=== PATIENT | female | born 1935 | race Caucasian/White ===

== ENCOUNTER 2024-06-23 08:11 | Inpatient (IN) | payer MEDICARE, BC ==
[~2024-06-23] VITALS: Ht 162.6 cm; Wt 69.1 kg
[~2024-06-23 08:11] MED LIST: metoprolol tartrate 1mg/ml inj IV ONE
[2024-06-23] MEDS: acetaminophen 1,000mg/100ml IV 100 ML IV SCH (09:22)
[2024-06-23] MEDS: diltiazem 5mg/ml 5ml inj. IV ONE ×3 (09:22→14:13)
[2024-06-23] MEDS: normal saline 1000ml 1,000 ML IV ONE ×2 (09:22→14:20)
[2024-06-23 09:23] LABS: BASOPHILS # (AUTO) 0.1 X10'3 (0-0.2); BASOPHILS % (AUTO) 0.6 % (0-1); EOSINOPHILS # (AUTO) 0.2 X10'3 (0-0.9); EOSINOPHILS % (AUTO) 1.7 % (0-6); HEMATOCRIT 41.1 % (35.0-45.0); HEMOGLOBIN 13.6 g/dl (12.0-16.0); LYMPHOCYTES # (AUTO) 0.9 X10'3 (1.1-4.8); LYMPHOCYTES % (AUTO) 6.4 % (21-51); MEAN CORPUSCULAR HEMOGLOBIN 30.7 PG (27.0-31.0); MEAN CORPUSCULAR HGB CONC 33.1 g/dL (33.0-36.5); MEAN CORPUSCULAR VOLUME 92.8 FL (78-98); MEAN PLATELET VOLUME 8.1 FL (7.4-10.4); MONOCYTES # (AUTO) 0.6 X10'3 (0-0.9); MONOCYTES % (AUTO) 4.4 % (2-12); NEUTROPHILS % (AUTO) 86.9 % (42-75); PLATELET COUNT 393 X10'3 (140-440); RED BLOOD COUNT 4.43 X10'6 (4.20-5.60); RED CELL DISTRIBUTION WIDTH 14.7 % (11.5-14.5); WHITE BLOOD COUNT 13.8 X10'3 (4.5-11.0)
[2024-06-23 09:30] LABS: ALANINE AMINOTRANSFERASE 26 U/L (12-78); ALBUMIN 3.3 G/DL (3.4-5.0); ALBUMIN/GLOBULIN RATIO 0.9 (1.1-1.5); ALKALINE PHOSPHATASE 90 IU/L (46-116); ANION GAP 8 (8-16); ASPARTATE AMINO TRANSFERASE 25 U/L (10-37); BILIRUBIN,TOTAL 0.6 MG/DL (0.1-1.0); BLOOD UREA NITROGEN 20 MG/DL (7-18); CALCIUM 8.4 MG/DL (8.5-10.1); CHLORIDE 104 MMOL/L (99-107); CREATININE 1.33 MG/DL (0.40-0.90); GLUCOSE 145 MG/DL (70-104); POTASSIUM 3.6 MMOL/L (3.5-5.1); SODIUM 139 MMOL/L (135-145); TOTAL CARBON DIOXIDE 26.7 MMOL/L (24-32); TOTAL PROTEIN 6.9 G/DL (6.4-8.2); eCRCL 25 ML/MIN; eGFR 38 ML/MIN
[2024-06-23] MEDS: metoprolol tartrate 1mg/ml inj IV ONE (09:31)
[2024-06-23] MEDS ORDERED: TRAZ-256 PO (09:50)
[2024-06-23] MEDS ORDERED: BUS15T PO (09:50)
[2024-06-23] MEDS ORDERED: ARIP2TAB37 PO (09:50)
[2024-06-23] MEDS ORDERED: DULO60CA59 PO (09:50)
[2024-06-23] MEDS ORDERED: LEVO125T PO (09:50)
[2024-06-23] MEDS ORDERED: DICY20TA17 PO (09:50)
[2024-06-23] MEDS ORDERED: AMLO5TAB5 PO (09:50)
[2024-06-23] MEDS ORDERED: LOP12.5T PO (09:50)
[2024-06-23] MEDS ORDERED: diltiazem-D5W 125mg/125ml 125 ML IV SCH (10:10)
[2024-06-23] MEDS: diltiazem-NS 100mg/100ml 100 ML IV SCH ×2 (11:16→15:40)
[2024-06-23] MEDS ORDERED: potassium Cl 20 mEq SR tablet PO PRN (12:05)
[2024-06-23] MEDS ORDERED: magnesium sulf-water 2g/50mL 50 ML IV PRN (12:05)
[2024-06-23] MEDS ORDERED: potassium Cl 40MEQ/1/2NS 520ml 520 ML IV PRN (12:05)
[2024-06-23] MEDS ORDERED: mag hydrox/Alum hydrox/simeth 30ml oral suspension PO PRN (12:05)
[2024-06-23] MEDS ORDERED: magnesium hydroxide 30ml (MOM) UD suspension PO PRN (12:05)
[2024-06-23] MEDS ORDERED: magnesium sulf-water 4G/100mL 100 ML IV PRN (12:05)
[2024-06-23 12:46] LABS: MAGNESIUM 1.8 MG/DL (1.5-2.4); THYROID STIMULATING HORMONE 0.66 ulU/ml (0.34-4.50)
[2024-06-23] MEDS: CefTRIAXone 2gm/D5W 50ml BAG 50 ML IV SCH (14:21)
[2024-06-23 14:41] LABS: D-DIMER 1.82 MG/L FEU (0-0.50)
[2024-06-23] MEDS ORDERED: amiodarone/D5 360MG/200ML BAG 200 ML IV SCH (14:55)
[2024-06-23 16:00] VITALS: RESP 16; O2SAT 94
[2024-06-23] MEDS: metoprolol tartrate 1mg/ml inj IV SCH (16:01)
[2024-06-23] MEDS: azithromycin/NS 500mg/250ml 250 ML IV SCH (16:14)
[2024-06-23] MEDS: normal saline 1000ml 1,000 ML IV SCH (16:20)
[2024-06-23 16:40] VITALS: BP 124/70; PULSE 149; RESP 16; TEMP 97.2; O2SAT 93
[2024-06-23 18:00] VITALS: BP 115/46; PULSE 160; RESP 18; TEMP 97.3; O2SAT 94
[2024-06-23] MEDS: amiodarone 200mg tablet PO SCH (18:36)
[2024-06-23] MEDS: docusate sod 100mg capsule PO SCH (18:59)
[2024-06-23] MEDS: K and/or MAG REPLACEMENT MC SCH (19:43)
[2024-06-23 20:00] VITALS: BP 122/56; PULSE 75; RESP 20; O2SAT 96
[2024-06-23] MEDS ORDERED: amiodarone 200mg tablet PO SCH (20:00)
[2024-06-23] MEDS: digoxin 250mcg/ml 2ml ampule IV STA (20:45)
[2024-06-23 22:00] VITALS: BP 128/58; PULSE 72; RESP 25; TEMP 97.6; O2SAT 94
[2024-06-24] VITALS (9 sets, daily range): BP systolic 101–153; BP diastolic 56–80; PULSE 81–107; RESP 16–23; TEMP 97.6–98.6; O2SAT 88–98
[2024-06-24 06:44] LABS: MAGNESIUM 1.7 MG/DL (1.5-2.4)
[2024-06-24 07:58] LABS: BASOPHILS # (AUTO) 0.1 X10'3 (0-0.2); BASOPHILS % (AUTO) 0.4 % (0-1); EOSINOPHILS # (AUTO) 0.1 X10'3 (0-0.9); EOSINOPHILS % (AUTO) 0.3 % (0-6); HEMATOCRIT 35.1 % (35.0-45.0); HEMOGLOBIN 11.6 g/dl (12.0-16.0); LYMPHOCYTES # (AUTO) 1.2 X10'3 (1.1-4.8); LYMPHOCYTES % (AUTO) 6.7 % (21-51); MEAN CORPUSCULAR HEMOGLOBIN 30.6 PG (27.0-31.0); MEAN CORPUSCULAR HGB CONC 33.2 g/dL (33.0-36.5); MEAN CORPUSCULAR VOLUME 92.2 FL (78-98); MEAN PLATELET VOLUME 8.5 FL (7.4-10.4); MONOCYTES # (AUTO) 1.1 X10'3 (0-0.9); MONOCYTES % (AUTO) 6.1 % (2-12); NEUTROPHILS # (AUTO) 15.1 X10'3 (1.8-7.7); NEUTROPHILS % (AUTO) 86.5 % (42-75); PLATELET COUNT 360 X10'3 (140-440); RED BLOOD COUNT 3.81 X10'6 (4.20-5.60); RED CELL DISTRIBUTION WIDTH 14.8 % (11.5-14.5); WHITE BLOOD COUNT 17.5 X10'3 (4.5-11.0)
[2024-06-24 08:03] LABS: ALANINE AMINOTRANSFERASE 31 U/L (12-78); ALBUMIN 2.6 G/DL (3.4-5.0); ALBUMIN/GLOBULIN RATIO 0.8 (1.1-1.5); ALKALINE PHOSPHATASE 76 IU/L (46-116); ANION GAP 12 (8-16); ASPARTATE AMINO TRANSFERASE 27 U/L (10-37); BILIRUBIN,TOTAL 1.1 MG/DL (0.1-1.0); BLOOD UREA NITROGEN 15 MG/DL (7-18); BUN/CREATININE RATIO 12.9 (10.0-20.0); CALCIUM 7.7 MG/DL (8.5-10.1); CHLORIDE 106 MMOL/L (99-107); CREATININE 1.16 MG/DL (0.40-0.90); GLUCOSE 103 MG/DL (70-104); POTASSIUM 3.4 MMOL/L (3.5-5.1); SODIUM 141 MMOL/L (135-145); TOTAL CARBON DIOXIDE 22.9 MMOL/L (24-32); TOTAL PROTEIN 5.9 G/DL (6.4-8.2); eCRCL 28 ML/MIN; eGFR 44 ML/MIN
[2024-06-24] MEDS: potassium Cl 20 mEq SR tablet PO PRN (11:51)
[2024-06-24] MEDS: ondansetron 4mg rapidly disintigrating tab PO PRN (11:52)
[2024-06-24 15:45] LABS: MAGNESIUM 1.7 MG/DL (1.5-2.4); POTASSIUM 3.5 MMOL/L (3.5-5.1)
[2024-06-24] MEDS: metoprolol tartrate 1mg/ml inj IV SCH ×2 (15:47→20:28)
[2024-06-24 17:33] LABS: ABG BASE EXCESS -5.6 mmol/L (-2.0-3.0); ABG HCO3 20.3 mmol/L (21.0-28.0); ABG OXYGEN SATURATION 92.2 % (94.0-98.0); ABG PCO2 (T) 40.8 mmHg (32.0-45.0); ABG PH (T) 7.314 (7.350-7.450); ABG PO2 (T) 64.6 mmHg (83.0-108.0); ALLEN'S TEST POSITIVE; FCOHb 0.3 % (0.5-1.5); FHHb 7.8 % (0.0-5.0); FO2Hb 91.9 % (94.0-98.0); MODE MASK - NRB; PATIENT TEMPERATURE 36.8; TOTAL HEMOGLOBIN 14.7 G/dl (12.0-16.0)
[2024-06-24] MEDS ORDERED: ondansetron/PF 4mg/2ml inj IV PRN (17:40)
[2024-06-24] MEDS: furosemide 40mg/4ml inj IV ONE (18:00)
[2024-06-24] MEDS: morphine 2 MG/ML inj. syringe IV PRN (18:10)
[2024-06-24] MEDS: ondansetron/PF 4mg/2ml inj IV PRN (18:11)
[2024-06-24] MEDS ORDERED: metoprolol tartrate 1mg/ml inj IV SCH (20:00)
[2024-06-24] MEDS: diltiazem-NS 100mg/100ml 100 ML IV SCH (20:29)
[2024-06-25] VITALS (15 sets, daily range): BP systolic 109–182; BP diastolic 58–119; PULSE 70–155; RESP 16–28; TEMP 97.8–98.8; O2SAT 95–97
[2024-06-25] MEDS: furosemide 40mg/4ml inj IV SCH (00:17)
[2024-06-25 03:19] LABS: BILIRUBIN,URINE NEGATIVE (Neg); CLARITY,URINE CLEAR (Clear); COLOR,URINE STRAW (Yellow); GLUCOSE, URINE NEGATIVE (Neg); KETONES,URINE NEGATIVE (Neg); LEUKOCYTE ESTERASE ,URINE NEGATIVE (Neg); NITRITES, URINE NEGATIVE (Neg); OCCULT BLOOD,URINE NEGATIVE (Neg); PROTEIN,URINE NEGATIVE (Neg); UROBILINOGEN,URINE 0.2 E.U/dL (0.2-1.0)
[2024-06-25 03:29] LABS: UA COLLECTION TYPE STRAIGHT CATH
[2024-06-25] MEDS: metoprolol tartrate 1mg/ml inj IV ONE (05:41)
[2024-06-25] MEDS: digoxin 250mcg/ml 2ml ampule IV STA (07:13)
[2024-06-25 07:18] LABS: BASOPHILS % (AUTO) 0.3 % (0-1); EOSINOPHILS # (AUTO) 0.1 X10'3 (0-0.9); EOSINOPHILS % (AUTO) 0.7 % (0-6); HEMATOCRIT 36.4 % (35.0-45.0); HEMOGLOBIN 12.1 g/dl (12.0-16.0); LYMPHOCYTES # (AUTO) 0.5 X10'3 (1.1-4.8); LYMPHOCYTES % (AUTO) 3.3 % (21-51); MEAN CORPUSCULAR HEMOGLOBIN 30.5 PG (27.0-31.0); MEAN CORPUSCULAR HGB CONC 33.2 g/dL (33.0-36.5); MEAN CORPUSCULAR VOLUME 91.9 FL (78-98); MEAN PLATELET VOLUME 8.4 FL (7.4-10.4); MONOCYTES # (AUTO) 0.7 X10'3 (0-0.9); MONOCYTES % (AUTO) 4.9 % (2-12); NEUTROPHILS # (AUTO) 13.5 X10'3 (1.8-7.7); NEUTROPHILS % (AUTO) 90.8 % (42-75); PLATELET COUNT 383 X10'3 (140-440); RED BLOOD COUNT 3.96 X10'6 (4.20-5.60); RED CELL DISTRIBUTION WIDTH 14.8 % (11.5-14.5); WHITE BLOOD COUNT 14.9 X10'3 (4.5-11.0)
[2024-06-25 07:52] LABS: ALANINE AMINOTRANSFERASE 25 U/L (12-78); ALBUMIN 2.5 G/DL (3.4-5.0); ALBUMIN/GLOBULIN RATIO 0.7 (1.1-1.5); ALKALINE PHOSPHATASE 76 IU/L (46-116); ANION GAP 9 (8-16); ASPARTATE AMINO TRANSFERASE 22 U/L (10-37); BILIRUBIN,TOTAL 0.7 MG/DL (0.1-1.0); BLOOD UREA NITROGEN 14 MG/DL (7-18); BUN/CREATININE RATIO 11.9 (10.0-20.0); CALCIUM 7.9 MG/DL (8.5-10.1); CHLORIDE 102 MMOL/L (99-107); CREATININE 1.18 MG/DL (0.40-0.90); GLUCOSE 93 MG/DL (70-104); MAGNESIUM 1.7 MG/DL (1.5-2.4); SODIUM 139 MMOL/L (135-145); TOTAL CARBON DIOXIDE 28.4 MMOL/L (24-32); eCRCL 28 ML/MIN; eGFR 43 ML/MIN
[2024-06-25] MEDS: VANCOMYCIN/WATER FOR INJ (PEG) 750MG/150 ML IVPB IV SCH (08:00)
[2024-06-25 08:15] LABS: POTASSIUM 2.8 MMOL/L (3.5-5.1)
[2024-06-25] MEDS: digoxin 250mcg/ml 2ml ampule IV ONE (08:54)
[2024-06-25] MEDS: spironolactone 25 MG tablet PO SCH (09:03)
[2024-06-25] MEDS: diltiazem-NS 100mg/100ml 100 ML IV SCH (10:40)
[2024-06-25] MEDS: methylPREDNISolone sod succ 125mg/2ml vial IV ONE (10:55)
[2024-06-25] MEDS: LidoCAINE 2% Topical Jelly 11mL syringe (UROJET) TOP ONE (12:00)
[2024-06-25] MEDS: LidoCAINE 2% Topical Jelly 11mL syringe (UROJET) ONE (12:02)
[2024-06-25] MEDS ORDERED: potassium Cl 40MEQ/270ML bag 270 ML IV STA (17:47)
[2024-06-25] MEDS: potassium Cl 20 mEq SR tablet PO STA (17:51)
[2024-06-25] MEDS: Potassium Cl 40 MEQ in sodium chloride 0.45% 500 ML IV STA (19:28)
[2024-06-26] VITALS (13 sets, daily range): BP systolic 101–189; BP diastolic 48–134; PULSE 64–154; RESP 14–23; TEMP 96.8–98.9; O2SAT 96–98
[2024-06-26 04:04] LABS: MAGNESIUM 1.8 MG/DL (1.5-2.4); POTASSIUM 3.9 MMOL/L (3.5-5.1)
[2024-06-26 07:20] LABS: BASOPHILS % (AUTO) 0.1 % (0-1); EOSINOPHILS % (AUTO) 0 % (0-6); HEMATOCRIT 36.3 % (35.0-45.0); HEMOGLOBIN 11.9 g/dl (12.0-16.0); LYMPHOCYTES # (AUTO) 0.7 X10'3 (1.1-4.8); LYMPHOCYTES % (AUTO) 5.6 % (21-51); MEAN CORPUSCULAR HEMOGLOBIN 29.8 PG (27.0-31.0); MEAN CORPUSCULAR HGB CONC 32.9 g/dL (33.0-36.5); MEAN CORPUSCULAR VOLUME 90.7 FL (78-98); MEAN PLATELET VOLUME 8.5 FL (7.4-10.4); MONOCYTES # (AUTO) 0.6 X10'3 (0-0.9); MONOCYTES % (AUTO) 5.2 % (2-12); NEUTROPHILS # (AUTO) 11.1 X10'3 (1.8-7.7); NEUTROPHILS % (AUTO) 89.1 % (42-75); PLATELET COUNT 386 X10'3 (140-440); RED CELL DISTRIBUTION WIDTH 14.5 % (11.5-14.5); WHITE BLOOD COUNT 12.4 X10'3 (4.5-11.0)
[2024-06-26 07:41] LABS: ALANINE AMINOTRANSFERASE 24 U/L (12-78); ALBUMIN 2.6 G/DL (3.4-5.0); ALBUMIN/GLOBULIN RATIO 0.7 (1.1-1.5); ALKALINE PHOSPHATASE 79 IU/L (46-116); ANION GAP 9 (8-16); ASPARTATE AMINO TRANSFERASE 18 U/L (10-37); BILIRUBIN,TOTAL 0.6 MG/DL (0.1-1.0); BLOOD UREA NITROGEN 20 MG/DL (7-18); BUN/CREATININE RATIO 14.8 (10.0-20.0); CHLORIDE 100 MMOL/L (99-107); CREATININE 1.35 MG/DL (0.40-0.90); GLUCOSE 128 MG/DL (70-104); MAGNESIUM 1.7 MG/DL (1.5-2.4); POTASSIUM 3.8 MMOL/L (3.5-5.1); SODIUM 138 MMOL/L (135-145); TOTAL PROTEIN 6.4 G/DL (6.4-8.2); eCRCL 24 ML/MIN; eGFR 37 ML/MIN
[2024-06-26] MEDS: amLODIPine 5mg tablet PO SCH (08:33)
[2024-06-26] MEDS: spironolactone 50 MG tablet PO SCH (08:33)
[2024-06-26 13:07] LABS: ALANINE AMINOTRANSFERASE 22 U/L (12-78); ALBUMIN 2.6 G/DL (3.4-5.0); ALBUMIN/GLOBULIN RATIO 0.7 (1.1-1.5); ALKALINE PHOSPHATASE 76 IU/L (46-116); ASPARTATE AMINO TRANSFERASE 18 U/L (10-37); BILIRUBIN,DIRECT 0.2 MG/DL (0-0.3); BILIRUBIN,TOTAL 0.6 MG/DL (0.1-1.0); FREE T4 (FREE THYROXINE) 1.45 NG/DL (0.73-1.40); THYROID STIMULATING HORMONE 0.89 ulU/ml (0.34-4.50); TOTAL PROTEIN 6.4 G/DL (6.4-8.2)
[2024-06-26] MEDS: metoprolol tartrate 50mg tablet PO SCH (19:42)
[2024-06-26] MEDS: digoxin 250mcg/ml 2ml ampule IV ONE (23:00)
[2024-06-26] MEDS: metoprolol tartrate 1mg/ml inj IV ONE (23:00)
[2024-06-27] VITALS (14 sets, daily range): BP systolic 108–159; BP diastolic 72–116; PULSE 83–147; RESP 8–24; TEMP 97–97.5; O2SAT 95–98
[2024-06-27] MEDS: acetaminophen 325mg tablet PO PRN (02:10)
[2024-06-27 07:43] LABS: BASOPHILS % (AUTO) 0.2 % (0-1); EOSINOPHILS # (AUTO) 0.1 X10'3 (0-0.9); EOSINOPHILS % (AUTO) 0.7 % (0-6); HEMATOCRIT 41.6 % (35.0-45.0); LYMPHOCYTES # (AUTO) 1.2 X10'3 (1.1-4.8); LYMPHOCYTES % (AUTO) 6.2 % (21-51); MEAN CORPUSCULAR HEMOGLOBIN 30.6 PG (27.0-31.0); MEAN CORPUSCULAR HGB CONC 33.6 g/dL (33.0-36.5); MEAN PLATELET VOLUME 8.6 FL (7.4-10.4); MONOCYTES # (AUTO) 1.7 X10'3 (0-0.9); MONOCYTES % (AUTO) 8.5 % (2-12); NEUTROPHILS # (AUTO) 16.8 X10'3 (1.8-7.7); NEUTROPHILS % (AUTO) 84.4 % (42-75); PLATELET COUNT 478 X10'3 (140-440); RED BLOOD COUNT 4.58 X10'6 (4.20-5.60); RED CELL DISTRIBUTION WIDTH 14.5 % (11.5-14.5); WHITE BLOOD COUNT 19.9 X10'3 (4.5-11.0)
[2024-06-27] MEDS: amiodarone 200mg tablet PO SCH (08:00)
[2024-06-27 08:19] LABS: ALANINE AMINOTRANSFERASE 22 U/L (12-78); ALBUMIN 2.8 G/DL (3.4-5.0); ALBUMIN/GLOBULIN RATIO 0.7 (1.1-1.5); ALKALINE PHOSPHATASE 90 IU/L (46-116); ANION GAP 8 (8-16); ASPARTATE AMINO TRANSFERASE 23 U/L (10-37); BILIRUBIN,TOTAL 0.5 MG/DL (0.1-1.0); BLOOD UREA NITROGEN 28 MG/DL (7-18); BUN/CREATININE RATIO 19.6 (10.0-20.0); CALCIUM 8.5 MG/DL (8.5-10.1); CHLORIDE 97 MMOL/L (99-107); CREATININE 1.43 MG/DL (0.40-0.90); GLUCOSE 99 MG/DL (70-104); POTASSIUM 3.4 MMOL/L (3.5-5.1); SODIUM 137 MMOL/L (135-145); TOTAL CARBON DIOXIDE 31.9 MMOL/L (24-32); TOTAL PROTEIN 6.8 G/DL (6.4-8.2); eCRCL 23 ML/MIN; eGFR 35 ML/MIN
[2024-06-27] MEDS ORDERED: magnesium Cl slow-release 64mg tablet PO PRN (11:35)
[2024-06-27] MEDS ORDERED: potassium Cl 20 mEq SR tablet PO PRN (11:35)
[2024-06-27] MEDS: potassium Cl 20 mEq SR tablet PO PRN (13:32)
[2024-06-27] MEDS: metoprolol tartrate 1mg/ml inj IV ONE (17:22)
[2024-06-27] MEDS: digoxin 250mcg/ml 2ml ampule IV ONE (17:24)
[2024-06-28] VITALS (13 sets, daily range): BP systolic 121–155; BP diastolic 77–97; PULSE 86–162; RESP 13–22; TEMP 97–97.8; O2SAT 93–96
[2024-06-28] MEDS: metoprolol tartrate 25mg tablet PO ONE (02:52)
[2024-06-28] MEDS: diltiazem-NS 100mg/100ml 100 ML IV SCH (02:52)
[2024-06-28] MEDS: VANCOMYCIN LEVEL IV ONE (07:30)
[2024-06-28 09:53] LABS: BASOPHILS # (AUTO) 0.1 X10'3 (0-0.2); BASOPHILS % (AUTO) 0.4 % (0-1); EOSINOPHILS # (AUTO) 0.3 X10'3 (0-0.9); EOSINOPHILS % (AUTO) 1.6 % (0-6); HEMATOCRIT 45.5 % (35.0-45.0); HEMOGLOBIN 15.2 g/dl (12.0-16.0); LYMPHOCYTES # (AUTO) 1.5 X10'3 (1.1-4.8); LYMPHOCYTES % (AUTO) 9.1 % (21-51); MEAN CORPUSCULAR HEMOGLOBIN 30.3 PG (27.0-31.0); MEAN CORPUSCULAR HGB CONC 33.4 g/dL (33.0-36.5); MEAN CORPUSCULAR VOLUME 90.9 FL (78-98); MEAN PLATELET VOLUME 8.3 FL (7.4-10.4); MONOCYTES # (AUTO) 1.3 X10'3 (0-0.9); MONOCYTES % (AUTO) 7.9 % (2-12); NEUTROPHILS # (AUTO) 13.5 X10'3 (1.8-7.7); PLATELET COUNT 581 X10'3 (140-440); RED CELL DISTRIBUTION WIDTH 14.6 % (11.5-14.5); WHITE BLOOD COUNT 16.7 X10'3 (4.5-11.0)
[2024-06-28 10:08] LABS: ALANINE AMINOTRANSFERASE 23 U/L (12-78); ALBUMIN 2.8 G/DL (3.4-5.0); ALBUMIN/GLOBULIN RATIO 0.7 (1.1-1.5); ALKALINE PHOSPHATASE 93 IU/L (46-116); ANION GAP 11 (8-16); BILIRUBIN,TOTAL 0.5 MG/DL (0.1-1.0); BLOOD UREA NITROGEN 30 MG/DL (7-18); BUN/CREATININE RATIO 21.4 (10.0-20.0); CHLORIDE 98 MMOL/L (99-107); GLUCOSE 193 MG/DL (70-104); POTASSIUM 3.9 MMOL/L (3.5-5.1); SODIUM 137 MMOL/L (135-145); TOTAL CARBON DIOXIDE 27.8 MMOL/L (24-32); TOTAL PROTEIN 7.1 G/DL (6.4-8.2); eCRCL 24 ML/MIN; eGFR 35 ML/MIN
[2024-06-28 10:13] LABS: ASPARTATE AMINO TRANSFERASE 14 U/L (10-37); VANCOMYCIN,TROUGH 13.6 ug/mL (10.0-20.0)
[2024-06-28] MEDS: digoxin 250mcg/ml 2ml ampule IV ONE (11:04)
[2024-06-28] MEDS: metoprolol tartrate 1mg/ml inj IV ONE (15:11)
[2024-06-28] MEDS: lactose-reduced food (Ensure High Protein) 237ml bottle PO SCH (18:16)
[2024-06-28] MEDS: digoxin 250mcg/ml 2ml ampule IV SCH (20:00)
[2024-06-28] MEDS: apixaban 2.5mg tablet PO SCH (21:39)
[2024-06-28] MEDS: metoprolol tartrate 50mg tablet PO SCH (21:40)
[2024-06-29] VITALS (9 sets, daily range): BP systolic 120–166; BP diastolic 64–86; PULSE 63–98; RESP 15–78; TEMP 97–98.7; O2SAT 20–96
[2024-06-29 02:35] LABS: BASOPHILS # (AUTO) 0.1 X10'3 (0-0.2); BASOPHILS % (AUTO) 0.5 % (0-1); EOSINOPHILS # (AUTO) 0.4 X10'3 (0-0.9); EOSINOPHILS % (AUTO) 2.2 % (0-6); HEMATOCRIT 44.5 % (35.0-45.0); HEMOGLOBIN 15.1 g/dl (12.0-16.0); MEAN CORPUSCULAR HEMOGLOBIN 30.3 PG (27.0-31.0); MEAN CORPUSCULAR HGB CONC 33.8 g/dL (33.0-36.5); MEAN CORPUSCULAR VOLUME 89.5 FL (78-98); MONOCYTES # (AUTO) 1.5 X10'3 (0-0.9); MONOCYTES % (AUTO) 7.5 % (2-12); NEUTROPHILS # (AUTO) 16.3 X10'3 (1.8-7.7); NEUTROPHILS % (AUTO) 79.8 % (42-75); PLATELET COUNT 599 X10'3 (140-440); RED BLOOD COUNT 4.98 X10'6 (4.20-5.60); RED CELL DISTRIBUTION WIDTH 14.2 % (11.5-14.5); WHITE BLOOD COUNT 20.4 X10'3 (4.5-11.0)
[2024-06-29 02:50] LABS: ALANINE AMINOTRANSFERASE 31 U/L (12-78); ALBUMIN 2.8 G/DL (3.4-5.0); ALBUMIN/GLOBULIN RATIO 0.7 (1.1-1.5); ALKALINE PHOSPHATASE 97 IU/L (46-116); ANION GAP 6 (8-16); ASPARTATE AMINO TRANSFERASE 23 U/L (10-37); BILIRUBIN,TOTAL 0.5 MG/DL (0.1-1.0); BLOOD UREA NITROGEN 35 MG/DL (7-18); BUN/CREATININE RATIO 22.3 (10.0-20.0); CALCIUM 8.5 MG/DL (8.5-10.1); CHLORIDE 97 MMOL/L (99-107); CREATININE 1.57 MG/DL (0.40-0.90); GLUCOSE 115 MG/DL (70-104); POTASSIUM 4.1 MMOL/L (3.5-5.1); SODIUM 133 MMOL/L (135-145); TOTAL CARBON DIOXIDE 29.9 MMOL/L (24-32); TOTAL PROTEIN 7.1 G/DL (6.4-8.2); eCRCL 21 ML/MIN; eGFR 31 ML/MIN
[2024-06-29 03:06] LABS: DIGOXIN 3.3 NG/ML (0.9-1.9)
[2024-06-29] MEDS: VANCOMYCIN 1GM 200ML H20 (PEG) 200 ML IV SCH (08:37)
[2024-06-29] MEDS: cloNIDine 0.1 MG/24 HOUR patch (7 day patch) TD SCH (13:32)
[2024-06-29] MEDS: diltiazem 30mg tablet PO SCH (15:48)
[2024-06-29] MEDS ORDERED: acetaminophen 325mg tablet PO PRN (16:00)
[2024-06-29] MEDS ORDERED: morphine 10mg/ml inj. IV PRN (16:00)
[2024-06-29] MEDS: docusate sod 100mg capsule PO SCH (20:00)
[2024-06-29] MEDS: sennosides/docusate sodium tablet PO SCH (20:00)
[2024-06-30 06:00] VITALS: BP 154/62; PULSE 70; RESP 14; TEMP 97.3; O2SAT 94
[2024-06-30 08:00] VITALS: RESP 14; O2SAT 94
[2024-06-30] MEDS: lactose-reduced food (Ensure High Protein) 237ml bottle PO SCH (08:00)
[2024-06-30] MEDS ORDERED: digoxin 250mcg/ml 2ml ampule IV SCH (08:00)
[2024-06-30] MEDS ORDERED: levoFLOXACIN 500mg tablet PO SCH (11:00)
[2024-06-30 11:44] VITALS: RESP 16
[2024-06-30] MEDS: morphine 10mg/0.5ml (conc. morphine) oral syringe PO PRN (11:44)
[2024-07-02] MEDS ORDERED: VANCOMYCIN LEVEL IV ONE (07:30)
== END 2024-06-30 11:40 | disposition hospice, home (50) | DRG 871 ==
LOC: ER 08:12 → ED HOLD 12:08 → PCU 3S 15:43
PROVIDERS: ADMIT Nurse Practitioner Family; ATTEND Nurse Practitioner Family
PROC: CB121ZZ Planar Nuclear Medicine Imaging of Lungs and Bronchi using Technetium 99m (Tc-99m) (ICD-10-PCS; principal; 2024-06-24)
DX: A41.9 Sepsis, unspecified organism (principal); I50.23 Acute on chronic systolic (congestive) heart failure; J18.9 Pneumonia, unspecified organism; I16.1 Hypertensive emergency; N17.9 Acute kidney failure, unspecified; Z20.822 Contact with and (suspected) exposure to COVID-19; E87.6 Hypokalemia; Z66 Do not resuscitate; I49.5 Sick sinus syndrome; I11.0 Hypertensive heart disease with heart failure; I27.20 Pulmonary hypertension, unspecified; I48.91 Unspecified atrial fibrillation; F03.90 Unspecified dementia, unspecified severity, without behavioral disturbance, psychotic disturbance, mood disturbance, and anxiety; Z79.899 Other long term (current) drug therapy
CPT/HCPCS: 36415; 36600; 71045; 71046; 78582; 80053; 80076; 80162; 80202; 81003; 82803; 83605; 83735; 84132; 84145; 84439; 84443; 84484; 85018; 85025; 85379; 87040; 87081; 87502; 87503; 87811; 93005; 93306; 94760; 96374; 97110; 97116; 97161; 97530; 97535; 99291; A4314; A4615; A6258; A9539; A9540; C1758; G0378; J0131; J0456; J0696; J1160; J1940; J2270; J2405; J2919; J3372; J3480; J3490; J7030; J7040